=== PATIENT | female | born 1945 ===

== ENCOUNTER → 2016-10-01 | Day surgery (SDC) | payer MEDICARE, MEDICAID ==
--- NOTE | 2016-09-30 12:40 | Pre-Procedure Note/Attestation ---
Pre-Procedure Note/Attestation Complete Prior to Procedure Planned Procedure: right Procedure Narrative: phaco with IOL, Indications for Procedure Pre-Operative Diagnosis: cataract Attestation I attest that I discussed the nature of the procedure; its benefits; risks and complications; and alternatives (and the risks and benefits of such alternatives ), prior to the procedure, with the patient (or the patient's legal real estate representative). I attest that, if there was a reasonable possibility of needing a blood transfusion, the patient (or the patient's legal real estate representative) was given the [facility] standardized written summary, pursuant to the Andres Maye Blood Safety Act ([place] Health and Safety Code # 1645, as amended). I attest that I re-evaluated the patient just prior to the surgery and that there has been no change in the patient's H&P, except as documented below: LIZABETH HERCULES Sep 30, 2016 12:40
--- NOTE | 2016-09-30 12:41 | Opthalmology H&P ---
Ophthalmology H&P H&P Chief Complaint: decreased vision in right eye HPI Vision Affects Ability to: read, focus/use eyes together, manage personal affairs HPI Narrative blurry vision Exam Visual Acuity: OD: 20/50 OS; 20/40 Tension: OD: 18 OS: 17 Eye Exam: normal OU: anterior chambers, corneas, external exam, fundus exam, levator function, marginal reflex distance, palpebral fissure-width, findings: lens - OD: cortical OS: cortical Assessment/Plan Diagnosis: (1) Cataract Treatment Plan: cataract extraction w/ lens implant Goals of Treatment: improvement of vision, enhance quality of life Attestation Attestation The risks and benefits of the surgery as well as alternative procedures were explained to the patient in detail. LIZABETH HERCULES Sep 30, 2016 12:41
[~2016-10-01] VITALS: Ht 154.9 cm; Wt 63.5 kg
[2016-10-01] VITALS (11 sets, daily range): BP systolic 119–167; BP diastolic 56–66
[~2016-10-01] MED LIST: AMLODIPINE BESYL5 MG ORAL; Akten 3.5% 1ml Btl ONE; Akten 3.5% 1ml Btl RIGHT EYE SCH; BSS 15ml BTL ONE; Bupivacaine 0.75% 30ml vial INJ ONE; CALCITRIOL0.25 MCG PO; CARBAMAZEPINE200 MG ORAL; Carbachol 0.01% Op Soln 1.5ml vial ONE; Cyclopentolate 1% Opth Sol ONE; EPINEPHrine 1mg/1ml Amp ONE; FERROUS SULFAT325 MG ORAL; FUROSEMIDE40 MG ORAL; Gatifloxacin Opth Solution 0.5% BOTH EYES SCH; Gatifloxacin Opth Solution 0.5% ONE; LEVOTHYROXINE88 MCG ORAL; LISINOPRIL20 MG ORAL; LR 1000ml 1,000 ML IVLG SCH; LR 1000ml ONE; Lidocaine 1% MPF 10mg/ml 5ml ONE; Lidocaine 2% MPF 5ml Vial INJ ONE; Lidocaine 4% Amp ONE; MULTIVITAMINS1 EAC2 ORAL; Midazolam 2mg/2ml Inj ONE; NEXIUM40 MG ORAL; NS Irrig 1000ml ONE; Phenylephrine 10% Opth Soln 5ml ONE; Pilocarpine 2% Opth Soln ONE; Povidone-Iodine 5% opth solution ONE; Propofol 10mg/ml 20ml IV ONE; RENVELA0.8 GM ORAL; SIMVASTATIN20 MG ORAL; Sodium Hyaluronate 14 mg/ml 0.85ml ONE; Sterile Water Irrig 1000ml IRRIG ONE; Tobramycin Op Soln 0.3% BOTH EYES ONE; Tobramycin Op Soln 0.3% ONE; Tropicamide 1% Opth Soln ONE; acetaZOLAMIDE 500mg Inj ONE; fentaNYL 100 mcg/2 mL IV ONE; fentaNYL 100 mcg/2 mL IV PRN
[2016-10-01] MEDS: Akten 3.5% 1ml Btl RIGHT EYE SCH ×3 (06:03→06:18)
[2016-10-01] MEDS: Cyclopentolate 1% Opth Sol RIGHT EYE SCH ×3 (06:03→06:18)
[2016-10-01] MEDS: Tropicamide 1% Opth Soln RIGHT EYE SCH ×3 (06:03→06:18)
[2016-10-01] MEDS: Phenylephrine 10% Opth Soln 5ml RIGHT EYE SCH ×3 (06:04→06:18)
--- NOTE | 2016-10-01 07:45 | Anethesia Preoperative Eval ---
Anesthesia Pre-op PMH/ROS General Date of Evaluation: Oct 01, 2016 Time of Evaluation: 07:42 Anesthesiologist: Christian ASA Score: ASA 3 Mallampati Score Class I : Soft palate, uvula, fauces, pillars visible Class II: Soft palate, uvula, fauces visible Class III: Soft palate, base of uvula visible Class IV: Only hard plate visible Mallampati Classification: Class II Surgeon: Cherise Diagnosis: R eye cataract Surgical Procedure: R eye cataract extraction with IOL Anesthesia History: none Family History: no anesthesia problems Allergies: Coded Allergies: No Known Allergies (Unverified , 09/30/16) Medications: see eMAR Past Medical History Cardiovascular: Reports: HTN, Denies: CAD, NC, arrhythmia, other, valve dz Pulmonary: Denies: COPD, BENNY, asthma, other Gastrointestinal/Genitourinary: Reports: ESRD, GERD, Denies: CRI, other Neurologic/Psychiatric: Denies: CVA, TIA, dementia, depression/anxiety, other Endocrine: Reports: hypothyroidism, Denies: DM, other, steroids HEENT: Reports: cataract (L), cataract (R), Denies: [place] (L), [place] (R), glaucoma, other Hematology/Immune: Reports: anemia - of chronic d-s, Denies: DVT, bleeding disorder, other Musculoskeletal/Integumentary: Reports: DJD, Denies: DDD, OA, RA, edema, other PMH Narrative: as above PSxH Narrative: none Anesthesia Pre-op Phys. Exam Physician Exam Last Vital Signs Date Time Temp Pulse Resp B/P Pulse Ox O2 Delivery O2 Flow Rate FiO2 10/01/16 06:12 97.5 77 17 167/66 100 Room Air Constitutional: NAD Neurologic: CN 2-12 intact Cardiovascular: RRR, no M/R/G Respiratory: CTA Gastrointestinal: S/NT/ND Airway Exam Mallampati Score: Class II MO: limited Neck: stiff ROM: full Teeth: missing Dentures: no lower, no upper Anesthesia Pre-op A/P Labs see chart Risk Assessment & Plan Assessment: ASA 3 Plan: MAC Status Change Before Surgery: No Pre-Antibiotics Drug: none NATE BENOIT M.D. Oct 01, 2016 07:45
--- NOTE | 2016-10-01 08:54 | Immediate Post-Op Evaluation ---
Immediate Post-Op Evalulation Immediate Post-Op Evalulation Procedure: R eye cataract extraction with IOL Date of Evaluation: Oct 01, 2016 Time of Evaluation: 08:26 IV Fluids: 200 Blood Products: none Estimated Blood Loss: none Urinary Output: none Blood Pressure Systolic: 147 Blood Pressure Diastolic: 58 Pulse Rate: 72 Respiratory Rate: 20 O2 Sat by Pulse Oximetry: 99 Temperature (Fahrenheit): 97.4 Pain Score (1-10): 2 Nausea: No Vomiting: No Complications none Patient Status: awake, patent, none Hydration Status: adequate NATE BENOIT M.D. Oct 01, 2016 08:54
--- NOTE | 2016-10-01 08:55 | 48 Hour Post Anesthesia Eval ---
Post Anesthesia Evaluation Procedure: R eye cataract extraction with IOL Date of Evaluation: Oct 01, 2016 Time of Evaluation: 08:54 Blood Pressure Systolic: 148 0: 72 Pulse Rate: 68 Respiratory Rate: 20 Temperature (Fahrenheit): 97.6 O2 Sat by Pulse Oximetry: 98 Airway: patent Nausea: No Vomiting: No Pain Intensity: 1 Hydration Status: adequate Cardiopulmonary Status: stable Mental Status/LOC: patient returned to baseline Follow-up Care/Observations: n/a Post-Anesthesia Complications: none Follow-up care needed: ready to discharge NATE BENOIT M.D. Oct 01, 2016 08:55
--- NOTE | 2016-10-05 10:20 | Brief Operative Note ---
Immediate Post Operative Note Operative Note Chief Complaint: blurry vision Pre-op Diagnosis: cataract Procedure: phaco with IOL Post-op Diagnosis: Pseudophakia Post-op Diagnosis: same as pre-op Findings: consistent w/pre-op dx studies Surgeon: Cherise Anesthesiologist: Christian Anesthesia: MAC Specimen: none Complications: none Condition: stable Estimated Blood Loss: none Drains: none Implant(s) used?: Yes LIZABETH HERCULES Oct 05, 2016 10:20
--- NOTE | 2016-10-05 10:22 | Operative Note - PDOC ---
Operative Note Operative Note Date of Operation/Procedure: Oct 01, 2016 Chief Complaint: blurry vision Pre-op Diagnosis: cataract Procedure: phaco with IOL Post-op Diagnosis: Pseudophakia Post-op Diagnosis: same as pre-op Operative Findings: consistent w/pre-op dx studies Surgeon: Cherise Anesthesiologist: Christian Anesthesia: MAC Specimen: none Complications: none Condition: stable Estimated Blood Loss: none Drains: none Implant(s) used?: Yes Indications for Procedure cataract Description of Procedure This patient has been complaining of visually significant cataract in the affected eye with the best corrected visual acuity under moderate glare conditions worse. The patient complains of difficulties with glare in performing activities of daily living and wants to manage personal affairs with comfort and accuracy and see well enough to move with safety at home and outdoors. The risks, benefits and alternatives of the procedure were discussed with the patient in the office prior to scheduling surgery. All questions from the patient were answered after the surgical procedure was explained in detail. The risks of the procedure as explained to the patient include, but are not limited to, pain, infection, bleeding, loss of vision, retinal detachment, need for further surgery, loss of lens nucleus, double vision, etc. Alternative of the procedure is to do nothing or seek a second opinion. Informed consent for this procedure was obtained from the patient. The patient was referred to a primary care physician for a cardiopulmonary clearance prior to surgery, after proper evaluation was done patient was properly scheduled for outpatient surgery. The patient was brought to the operating room where the anesthesiologist established I.V. lines and cardiac monitoring leads. Mild intravenous sedation was administered. The patient was then prepared with a 5% solution of povidone- iodine to the conjunctival fornix and lashes, and a 10% solution of povidone- iodine to the lids and periorbital skin. The patient was then draped in the usual sterile fashion. A lid speculum were then placed in the operative eye. A keratome blade was then used to create a biplanar incision into the anterior chamber. Healon was then instilled into the anterior chamber. A capsulorrhexis was then fashioned with a utrata forceps . BSS and a cannula were then used to hydrodissect and hydrodelineate the lens. Paracentesis incision was made at 3 o'clock with sharp blade. The phacoemulsification unit, after being properly adjusted and tested, was then used to emulsify the nucleus. Residual cortical material was aspirated with the irrigation and aspiration unit. Healon was then instilled into the anterior chamber. The corneal wound was then enlarged to the size of the optic with the hernán keratome blade. The intraocular lens was then inspected for right power and size and thought to be satisfactory. Then the lens was gently placed in the capsular bag. Positioning within the capsular bag was confirmed by direct visualization. Optic centration was accomplished with a Sinskey hook. Viscoelastics was removed from the anterior chamber using the irrigation and aspiration unit. The corneal wound was then tested for leaks and none were found. The lid speculum were then removed. Sponge and needle counts were correct. An eye patch and shield were placed over the operative eye. The patient was taken to the recovery room in stable condition. There were no complications. The patient tolerated the procedure well. The patient was then transferred to the ambulatory surgery unit in stable and satisfactory condition , was given detailed written instructions and asked to follow up tomorrow morning in the office. Dictated & Transcribed: SIMÓN: Lesli NOBLES JAMES Oct 05, 2016 10:22
== END | disposition home or self-care (01) ==
LOC: SUR 05:37
DX: H26.9 Unspecified cataract (principal); I12.9 Hypertensive chronic kidney disease with stage 1 through stage 4 chronic kidney disease, or unspecified chronic kidney disease; N18.9 Chronic kidney disease, unspecified; D63.1 Anemia in chronic kidney disease; E03.9 Hypothyroidism, unspecified; K21.9 Gastro-esophageal reflux disease without esophagitis; M19.90 Unspecified osteoarthritis, unspecified site
CPT/HCPCS: 66984; J2250; J2704; J3010; J7120; V2632; 94003; 94150

== ENCOUNTER → 2016-12-17 | Day surgery (SDC) | payer MEDICARE, MEDICAID ==
--- NOTE | 2016-12-16 13:26 | Pre-Procedure Note/Attestation ---
Pre-Procedure Note/Attestation Complete Prior to Procedure Planned Procedure: left Procedure Narrative: phaco with iol Indications for Procedure Pre-Operative Diagnosis: cataract Attestation I attest that I discussed the nature of the procedure; its benefits; risks and complications; and alternatives (and the risks and benefits of such alternatives ), prior to the procedure, with the patient (or the patient's legal account retention representative). I attest that, if there was a reasonable possibility of needing a blood transfusion, the patient (or the patient's legal account retention representative) was given the [facility] standardized written summary, pursuant to the Andres Rebecca Blood Safety Act ([place] Health and Safety Code # 1645, as amended). I attest that I re-evaluated the patient just prior to the surgery and that there has been no change in the patient's H&P, except as documented below: LIZABETH HERCULES Dec 16, 2016 13:26
--- NOTE | 2016-12-16 13:34 | Opthalmology H&P ---
Ophthalmology H&P H&P Chief Complaint: decreased vision in left eye HPI Vision Affects Ability to: read, focus/use eyes together, manage personal affairs HPI Narrative blurry vision Exam Visual Acuity: OD: 20/25 OS: 20/60 Tension: OD: 14 OS: 16 Eye Exam: normal OU: anterior chambers, corneas, external exam, fundus exam, levator function, marginal reflex distance, palpebral fissure-width, findings: lens - OD: IOL OS: ns Assessment/Plan Diagnosis: (1) Cataract Treatment Plan: cataract extraction w/ lens implant Goals of Treatment: improvement of vision, enhance quality of life Attestation Attestation The risks and benefits of the surgery as well as alternative procedures were explained to the patient in detail. LIZABETH HERCULES Dec 16, 2016 13:34
[~2016-12-17] VITALS: Ht 157.5 cm; Wt 64.4 kg
[2016-12-17] VITALS (7 sets, daily range): BP systolic 131–143; BP diastolic 58–86
[~2016-12-17] MED LIST changes: +Akten 3.5% 1ml Btl LEFT EYE ONE; -Akten 3.5% 1ml Btl ONE; -Akten 3.5% 1ml Btl RIGHT EYE SCH; +BSS 500ml btl ONE; -Bupivacaine 0.75% 30ml vial INJ ONE; -Carbachol 0.01% Op Soln 1.5ml vial ONE; -Cyclopentolate 1% Opth Sol ONE; +Dexamethasone 4mg/ml vial ONE; -Gatifloxacin Opth Solution 0.5% BOTH EYES SCH; -Gatifloxacin Opth Solution 0.5% ONE; +Hydromorphone 0.5mg/0.5ml inj IVP PRN; +Ketorolac 30mg Inj IV PRN; -LR 1000ml 1,000 ML IVLG SCH; -LR 1000ml ONE; -Lidocaine 1% MPF 10mg/ml 5ml ONE; -Lidocaine 2% MPF 5ml Vial INJ ONE; -Lidocaine 4% Amp ONE; +Maxitrol Opth Oint 3.5gm ONE; +Norco 5mg/325mg tab ORAL PRN; -Phenylephrine 10% Opth Soln 5ml ONE; -Pilocarpine 2% Opth Soln ONE; +Pred Forte 1% Opth Susp 1ml ONE; -Tobramycin Op Soln 0.3% BOTH EYES ONE; +Tobramycin Op Soln 0.3% LEFT EYE ONE; -Tobramycin Op Soln 0.3% ONE; -Tropicamide 1% Opth Soln ONE; -acetaZOLAMIDE 500mg Inj ONE
[2016-12-17] MEDS: Cyclopentolate 1% Opth Sol LEFT EYE SCH ×3 (06:44→07:03)
[2016-12-17] MEDS: Diclofenac Sod 0.1% Op Soln LEFT EYE SCH ×3 (06:45→07:03)
[2016-12-17] MEDS: Tropicamide 1% Opth Soln LEFT EYE SCH ×3 (06:45→07:03)
[2016-12-17] MEDS: Phenylephrine 2.5% Op Soln LEFT EYE SCH ×3 (06:45→07:03)
--- NOTE | 2016-12-17 08:29 | Anethesia Preoperative Eval ---
Anesthesia Pre-op PMH/ROS General Date of Evaluation: Dec 17, 2016 Time of Evaluation: 07:20 Anesthesiologist: Jamee ASA Score: ASA 2 Mallampati Score Class I : Soft palate, uvula, fauces, pillars visible Class II: Soft palate, uvula, fauces visible Class III: Soft palate, base of uvula visible Class IV: Only hard plate visible Mallampati Classification: Class II Surgeon: Cherise Diagnosis: Cataract Surgical Procedure: Cataract Surgery Anesthesia History: none Allergies: Coded Allergies: No Known Allergies (Unverified , 09/30/16) Medications: see eMAR Past Medical History Cardiovascular: Reports: HTN Pulmonary: Denies: COPD, BENNY, asthma, other Gastrointestinal/Genitourinary: Denies: CRI, ESRD, GERD, other Neurologic/Psychiatric: Denies: CVA, TIA, dementia, depression/anxiety, other Endocrine: Reports: hypothyroidism HEENT: Reports: cataract (L) Hematology/Immune: Denies: DVT, anemia, bleeding disorder, other Musculoskeletal/Integumentary: Reports: DJD Anesthesia Pre-op Phys. Exam Physician Exam Last Vital Signs Date Time Temp Pulse Resp B/P Pulse Ox O2 Delivery O2 Flow Rate FiO2 12/17/16 06:53 97.8 72 18 143/86 100 Room Air Constitutional: NAD Neurologic: CN 2-12 intact Cardiovascular: RRR Respiratory: CTA Gastrointestinal: S/NT/ND Airway Exam Mallampati Score: Class II LUISA BROWN M.D. Dec 17, 2016 08:29
--- NOTE | 2016-12-17 08:30 | Immediate Post-Op Evaluation ---
Immediate Post-Op Evalulation Immediate Post-Op Evalulation Procedure: Cataract Date of Evaluation: Dec 17, 2016 Time of Evaluation: 08:40 IV Fluids: 300 Blood Products: 0 Estimated Blood Loss: 0 Urinary Output: 0 Blood Pressure Systolic: 140 Blood Pressure Diastolic: 70 Pulse Rate: 70 Respiratory Rate: 20 O2 Sat by Pulse Oximetry: 99 Temperature (Fahrenheit): 98 Pain Score (1-10): 1 Nausea: No Vomiting: No Complications na Patient Status: awake Hydration Status: adequate Given Within 1 Hr of Incision: LUISA Rodriguez M.D. Dec 17, 2016 08:30
--- NOTE | 2016-12-17 08:32 | 48 Hour Post Anesthesia Eval ---
Post Anesthesia Evaluation Procedure: Cataract Date of Evaluation: Dec 17, 2016 Time of Evaluation: 09:40 Blood Pressure Systolic: 140 0: 76 Pulse Rate: 73 Respiratory Rate: 20 Temperature (Fahrenheit): 98 O2 Sat by Pulse Oximetry: 98 Airway: patent Nausea: No Vomiting: No Pain Intensity: 2 Hydration Status: adequate Cardiopulmonary Status: stable Mental Status/LOC: patient returned to baseline Follow-up Care/Observations: na Post-Anesthesia Complications: na Follow-up care needed: N/A LUISA BROWN M.D. Dec 17, 2016 08:32
--- NOTE | 2016-12-20 08:36 | Brief Operative Note ---
Immediate Post Operative Note Operative Note Chief Complaint: blurry vision Pre-op Diagnosis: cataract Procedure: Phaco with IOL, OS Post-op Diagnosis: Pseudophakia Post-op Diagnosis: same as pre-op Findings: consistent w/pre-op dx studies Surgeon: Cherise Anesthesiologist: Jamee Anesthesia: MAC Specimen: none Complications: none Condition: stable Estimated Blood Loss: none Drains: none Implant(s) used?: Yes LIZABETH HERCULES Dec 20, 2016 08:36
--- NOTE | 2016-12-20 08:39 | Operative Note - PDOC ---
Operative Note Operative Note Date of Operation/Procedure: Dec 17, 2016 Chief Complaint: blurry vision Pre-op Diagnosis: cataract, OS Procedure: Phaco with IOL, OS Post-op Diagnosis: Pseudophakia, OS Post-op Diagnosis: same as pre-op Operative Findings: consistent w/pre-op dx studies Surgeon: Cherise Anesthesiologist: Jamee Anesthesia: MAC Specimen: none Complications: none Condition: stable Estimated Blood Loss: none Drains: none Implant(s) used?: Yes Indications for Procedure Cataract, OS Description of Procedure This patient has been complaining visually significant cataract in the affected eye with the best corrected visual acuity under moderate glare conditions worse. The patient complains of difficulties with glare in performing activities of daily living and wants to manage personal affairs with comfort and accuracy and see well enough to move with safety at home and outdoors. ~~~ The risks, benefits and alternatives of the procedure were discussed with the patient in the office prior to scheduling surgery. All questions from the patient were answered after the surgical procedure was explained in detail. The risks of the procedure as explained to the patient include, but are not limited to, pain, infection, bleeding, loss of vision, retinal detachment, need for further surgery, loss of lens nucleus, double vision, etc. Alternative procedures were discussed which include, to do nothing or seek a second opinion. Informed consent for this procedure was obtained from the patient. The patient was referred to a primary care physician for a cardiopulmonary clearance prior to surgery, after proper evaluation was done patient was properly scheduled for outpatient surgery. The patient was brought to the operating room where the anesthesiologist established I.V. lines and cardiac monitoring leads. Mild intravenous sedation was administered.~~ The patient was then prepared with a 5% solution of povidone -iodine to the conjunctival fornix and lashes, and a 10% solution of povidone- iodine to the lids and periorbital skin. The patient was then draped in the usual sterile fashion. A lid speculum was then placed in the operative eye. A keratome blade was then used to create a biplanar incision into the anterior chamber. Viscoelastics was then instilled into the anterior chamber. A capsulorrhexis was then fashioned with an utrata forceps. BSS and a cannula were then used to hydrodissect and hydro delineate the lens. Paracentesis incision was made at 3 o'clock with sharp blade. The phacoemulsification unit, after being properly adjusted~ and tested, was then used to emulsify the nucleus. Residual cortical material was aspirated with the irrigation and aspiration unit. Healon was then instilled into the anterior chamber. The corneal wound was then enlarged to the size of the optic with the hernán keratome blade. The intraocular lens was then inspected for right~ power and size~ and thought to be satisfactory. Then the lens was gently placed in the capsular bag. Positioning within the capsular bag was confirmed by direct visualization. Optic centration was accomplished with a Sinskey hook. Viscoelastics~ was removed from the anterior chamber using the irrigation and aspiration unit. The corneal wound was then tested for leaks and none were found. The lid speculum were then removed. Sponge and needle counts were correct. An eye patch and shield were placed over the operative eye. The patient was taken to the recovery room in stable condition. There were no complications. The patient tolerated the procedure well. The patient was then transferred to the ambulatory surgery unit in stable and satisfactory condition , was given detailed written instructions and asked to follow up~ in the office the next day. ~ ~ Dictated & Transcribed: [facility] Lesli NOBLES JAMES Dec 20, 2016 08:38
== END | disposition home or self-care (01) ==
LOC: SUR 05:38
DX: H26.9 Unspecified cataract (principal); I12.9 Hypertensive chronic kidney disease with stage 1 through stage 4 chronic kidney disease, or unspecified chronic kidney disease; N18.9 Chronic kidney disease, unspecified; K21.9 Gastro-esophageal reflux disease without esophagitis; D64.9 Anemia, unspecified; G50.0 Trigeminal neuralgia; E78.5 Hyperlipidemia, unspecified; M19.90 Unspecified osteoarthritis, unspecified site; E03.9 Hypothyroidism, unspecified
CPT/HCPCS: 66984; J0171; J1100; J2250; J2704; J3010; J3370; V2632; 94003; 94150